=== PATIENT | female | born 1955 | race Caucasian/White ===

== ENCOUNTER 2017-01-18 06:25 | Day surgery (SDC) | payer BC ==
--- NOTE | ~2017-01-18 | OP ---
Record Of Operation [facility] [address] [place]. [address] NAME: SUMMER JARAMILLO : 57 STATUS : REG [facility] [place] PAT#: [id number] AGE: 61 ADM/REG DATE : 01/18/17 MR#: [id number] REPORT SERV DATE: 01/18/17 DICTATED BY: POLY BASSETT JR. DATE: 01/18/17 REPORT STATUS : Draft TRANSCRIBED BY: MODL DATE: 01/18/17 DATE OF PROCEDURE: REASON FOR SURGERY: This 61-year-old patient presents to the [facility] [place] with now a biopsy proven malignancy of the right breast. The case has been presented at the weekly breast conference. The patient has been counseled extensively and now is to undergo breast preservation therapy for this small clinically node negative and hormone favorable tumor. PREOPERATIVE DIAGNOSIS: Carcinoma, right breast. POSTOPERATIVE DIAGNOSIS: Carcinoma, right breast. SURGEON: Poly Bassett M.D. SURGERY PERFORMED: Prior ultrasound localization of breast lesion, followed by sentinel node localization right breast segmentectomy, and sentinel node removal. DESCRIPTION OF PROCEDURE: The patient previously underwent ultrasound localization. She was injected in the nuclear medicine facility. She was taken to the operating room and under general anesthesia, she was prepped and draped in supine position in the usual sterile fashion. A curvilinear incision was made directly over the previously localized site. Vertical dissection was carried down through the fatty tissue. The now identifiable indurated biopsy site was dissected with the 4 cm sphere of tissue removed, keeping the density center most within the specimen. It was removed and oriented for pathology. On pathological sectioning, there was seen to be in extension towards the deep 4 o'clock position and therefore an additional disk measuring 3 x 3 x 1.5 cm was taken at this margin and oriented for pathology. The wound was irrigated and hemostasis obtained. The wound was closed with two layers of Monocryl. Attention is to the right axilla. With help with the Gamma probe, a small vertical incision was made and vertical dissection was carried down to singly active spot node. It was removed and the numbers are recorded in surgical log book. The wound was irrigated and hemostasis was obtained. The wound was closed with two layers of Monocryl. The patient tolerated the procedure well without complications. ESTIMATED BLOOD LOSS: 10 mL. SPONGE COUNT: Correct. Record Of Operation [facility] [address] [place]. [address] NAME: SUMMER JARAMILLO : 57 STATUS : REG [facility]#: [id number] AGE: 61 ADM/REG DATE : 01/18/17 MR#: [id number] REPORT SERV DATE: 01/18/17 DICTATED BY: POLY BASSETT JR. DATE: 01/18/17 REPORT STATUS : Draft TRANSCRIBED BY: MAL DATE: 01/18/17 MR/MAL Poly Bassett Jr., M.D. / [id number] CC: Lindsey Fleming Jr., M.D. [facility]
[~2017-01-18 06:25] MED LIST: AT25 PO; COZ25 PO; LIPITOR20 PO; MAX25 PO; NEUR300 PO; ZOVI200CAP PO
[2017-01-18 08:58] LABS: BASOPHILS 0.6 %; BASOPHILS ABSOLUTE 0.04 10/3/uL (0.0-0.16); EOSINOPHILS 1.6 %; HEMATOCRIT 40.5 % (36.0-48.0); IMMATURE GRANULOCYTES 0.2 %; IMMATURE GRANULOCYTES ABSOLUTE 0.01 10/3/uL (0.0-0.11); LYMPHOCYTES 32.4 %; LYMPHOCYTES ABSOLUTE 2.06 10/3/uL (0.67-4.30); MEAN CORPUS HGB CONC 34.6 g/dL (32.0-36.0); MEAN CORPUSCULAR HEMOGLOB 30.3 pg (26.0-34.0); MEAN CORPUSCULAR VOLUME 87.7 fL (80-100); MEAN PLATELET VOLUME 9.4 fL (9.2-13.0); MONOCYTES 4.6 %; MONOCYTES ABSOLUTE 0.29 10/3/uL (0.21-1.20); NEUTROPHILS 60.6 %; NEUTROPHILS ABSOLUTE 3.86 10/3/uL (2.02-8.40); PLATELET COUNT 288 10/3/uL (150-400); RED CELL COUNT 4.62 10/6/uL (4.0-5.6); WHITE BLOOD CELLS 6.4 10/3/uL (4.5-10.5)
[2017-01-18 09:01] LABS: MANUAL DIFF NO %
[2017-01-18 09:11] LABS: A/G RATIO 1.2 (0.7-1.9); ALBUMIN 4.1 G/DL (3.5-5.0); ALKALINE PHOSPHATASE 85 U/L (45-117); BUN (BLOOD UREA NITROGEN) 13 MG/DL (6-23); CALCIUM, SERUM 9.1 MG/DL (8.5-10.4); CHLORIDE, SERUM 105 MMOL/L (96-112); CO2 (CARBON DIOXIDE) 26 MMOL/L (24-34); CREATININE 0.78 MG/DL (0.55-1.02); GFR AFRICAN AMERICAN 96 ML/MIN (>=60); GFR NON AFRICAN AMERICAN 83 ML/MIN (>=60); GLOBULIN 3.5 G/DL (2.5-4.1); GLUCOSE, SERUM 117 MG/DL (60-99); POTASSIUM, SERUM 3.9 MMOL/L (3.5-5.3); SGOT(AST) 63 U/L (5-40); SGPT(ALT) 39 U/L (5-65); SODIUM, SERUM 143 MMOL/L (135-148); TOTAL BILIRUBIN 0.4 MG/DL (0-1.2); TOTAL PROTEIN 7.6 G/DL (6.0-8.5)
== END 2017-01-18 14:41 | disposition home or self-care (01) ==
LOC: SDC 06:25
PROVIDERS: Surgery Surgical Oncology
PROC: 07B50ZX Excision of Right Axillary Lymphatic, Open Approach, Diagnostic (ICD-10-PCS; 2017-01-18)
PROC: BH40ZZZ Ultrasonography of Right Breast (ICD-10-PCS; 2017-01-18)
PROC: 0HBT0ZX Excision of Right Breast, Open Approach, Diagnostic (ICD-10-PCS; principal; 2017-01-18 10:00)
DX: C50.911 Malignant neoplasm of unspecified site of right female breast (principal); I10 Essential (primary) hypertension; H40.9 Unspecified glaucoma; Z90.49 Acquired absence of other specified parts of digestive tract; Z98.890 Other specified postprocedural states; Z88.1 Allergy status to other antibiotic agents; Z88.8 Allergy status to other drugs, medicaments and biological substances; Z79.899 Other long term (current) drug therapy
CPT/HCPCS: 71020; 78195; 80053; 85025; 88305; 88307; 88342; 93005; A9270-GY; A9541; J0690; J2270; J2405; J3010